=== PATIENT | male | born 1975 | race Two or more races ===

== ENCOUNTER 2022-07-08 14:36 | Emergency (ER) | payer BC ==
[~2022-07-08] VITALS: Ht 182.9 cm; Wt 99.8 kg
--- NOTE | 2022-07-08 15:02 | NUR ---
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
[2022-07-08] MEDS ORDERED: KETOROLAC TROMETHAMINE INJ 30 MG/ML VIAL ONE (15:38)
[2022-07-08] MEDS ORDERED: ONDANSETRON HCL/PF 4 MG/2 ML VIAL ONE (15:38)
[2022-07-08] MEDS ORDERED: MORPHINE SULFATE INJ 4 MG/ML DISP.SYRIN ONE (15:38)
[2022-07-08] MEDS: KETOROLAC TROMETHAMINE INJ 30 MG/ML VIAL IV ONE (15:40)
[2022-07-08] MEDS: IV NS 0.9% 1,000 ML BAG IV ONE (15:40)
[2022-07-08] MEDS: MORPHINE SULFATE INJ 2 MG/ML DISP.SYRIN IV ONE (15:40)
[2022-07-08 15:44] LABS: BASOPHILS % (AUTO) 0.5 % (0.0-2.0); EOSINOPHILS % (AUTO) 2.6 % (0.0-6.0); HEMATOCRIT 47 % (39-51); LYMPHOCYTES # (AUTO) 2.1 K/uL (0.8-4.8); LYMPHOCYTES % (AUTO) 28.7 % (20.0-44.0); MEAN CORPUSCULAR HGB CONC 34 g/dl (31.0-36.0); MEAN CORPUSCULAR VOLUME 86 fL (80-96); MONOCYTES # (AUTO) 0.9 K/uL (0.1-1.30); MONOCYTES % (AUTO) 12.2 % (2.0-12.0); NEUTROPHILS # (AUTO) 4.1 K/uL (1.8-8.9); PLATELET COUNT (AUTO) 304 K/uL (150-450); RED BLOOD CELL COUNT(AUTO) 5.45 MIL/uL (4.5-6.0); WHITE BLOOD COUNT (AUTO) 7.3 K/uL (4.3-11.0)
[2022-07-08] MEDS: ONDANSETRON HCL/PF 4 MG/2 ML VIAL IVP ONE (15:44)
[2022-07-08 16:07] LABS: ALBUMIN 4.6 g/dL (3.4-5.0); BILIRUBIN,DIRECT 0.2 mg/dL (0.0-0.2); BILIRUBIN,TOTAL 0.8 mg/dL (0.2-1.0); CALCIUM, SERUM 9.8 mg/dL (8.5-10.1); CREATININE 1.2 mg/dL (0.6-1.3); POTASSIUM 3.1 mmol/L (3.5-5.1); TOTAL PROTEIN, SERUM 8.1 g/dL (6.4-8.2)
[2022-07-08] MEDS ORDERED: IBUP-1957 PO (17:15)
[2022-07-08] MEDS ORDERED: HYDR-3972 PO (17:15)
[2022-07-08] MEDS ORDERED: TAMS-12 PO (17:15)
--- NOTE | 2022-07-08 17:54 | NUR ---
URINE PICKED UP BY LAB
[2022-07-08 18:47] LABS: BILIRUBIN,URINE NEGATIVE (NEGATIVE); COLOR,URINE YELLOW (YELLOW); LEUKOCYTE ESTERASE ,URINE NEGATIVE (NEGATIVE); NITRITE, URINE NEGATIVE (NEGATIVE); PH,URINE 7.5 (5.0-8.0); PROTEIN,URINE NEGATIVE (NEGATIVE); UGLUCOSE NEGATIVE (NEGATIVE)
[2022-07-08] MEDS ORDERED: TAMSULOSIN 0.4 MG CAP.SR.24H ONE (18:55)
[2022-07-08 18:58] LABS: BACTERIA,URINE Few /HPF (None Seen); RBC,URINE 21-50 /HPF (0-2); SQUAMOUS EPITHELIAL CELL,UR Few /HPF (None Seen); WBC,URINE 0-2 /HPF (0-3)
[2022-07-08] MEDS ORDERED: TAMSULOSIN 0.4 MG CAP.SR.24H PO ONE (19:00)
--- NOTE | 2022-07-08 19:02 | NUR ---
IV removed. Catheter intact and site benign. Pressure and 4x4 applied to site. No bleeding noted.Patient discharged to home in stable condition. Written and verbal after care instructions given. Patient verbalizes understanding of instruction.
[2022-07-08 19:03] VITALS: BP 130/74
== END 2022-07-08 19:04 | disposition home or self-care (01) ==
LOC: ER 14:49
DX: N23 Unspecified renal colic (principal); N20.1 Calculus of ureter; I10 Essential (primary) hypertension; Z79.899 Other long term (current) drug therapy
CPT/HCPCS: 99284; 74176; 96374; 96375; 96361; 85025; 80048; 83690; 80076; 81001; 36415; J2270; J1885; J2405; J7030